=== PATIENT | female | born 1960 ===

== ENCOUNTER 2020-08-01 12:25 | Emergency (ER) | payer MEDICARE ==
[2020-08-01 13:40] VITALS: BP 103/60
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
== END 2020-08-01 15:31 | disposition home or self-care (01) ==
LOC: ED 12:25
DX: R43.8 Other disturbances of smell and taste (principal); Z20.822 Contact with and (suspected) exposure to COVID-19; E11.9 Type 2 diabetes mellitus without complications; M19.91 Primary osteoarthritis, unspecified site; J44.9 Chronic obstructive pulmonary disease, unspecified; Z98.890 Other specified postprocedural states; Z91.018 Allergy to other foods